=== PATIENT | male | born 1950 | race African-American/Black ===

== ENCOUNTER 2016-09-24 14:15 | Inpatient (IN) | payer OTHER ==
[~2016-09-24] VITALS: Ht 182.9 cm; Wt 124.8 kg
[2016-09-24 16:05] LABS: Basophils # (auto) 0 uL; Basophils % (auto) 0.5 % (0.0-2.0); Eosinophils # (auto) 0.1 uL; Eosinophils % (auto) 1.8 % (0.0-7.0); Hematocrit 43.5 % (41.0-53.0); Hemoglobin 14.3 g/dL (13.5-17.5); Lymphocytes # (auto) 1.5 uL; Lymphocytes % (auto) 25.2 % (10.0-50.0); Mean Corpuscular Hemoglobin 29.8 pg (28.0-32.0); Mean Corpuscular Hgb Conc. 32.9 g/dL (32.0-36.0); Mean Corpuscular Volume 90.6 fL (80.0-100.0); Mean Platelet Volume 9.6 fL (7.4-10.4); Monocytes # (auto) 0.4 uL; Monocytes % (auto) 6.6 % (0.0-12.0); Neutrophils % (auto) 65.9 % (37.0-80.0); Platelet Count (auto) 230 10^3/uL (140-450); Red Cell Distribution Width 14.4 % (11.6-16.0); White Blood Cell 6.1 10^3/uL (4.4-10.8)
[2016-09-24 16:26] LABS: Albumin 3.6 g/dL (3.4-5.0); BUN/Creatinine Ratio 19.2; Bilirubin, Total 0.5 mg/dL (0.2-1.0); Calcium 8.5 mg/dL (8.5-10.1); Magnesium 2.5 mg/dL (1.6-2.6); Total Protein 7.2 g/dL (6.4-8.2)
[2016-09-24] MEDS ORDERED: SODIUM CHLORIDE 0.9% 1,000 ML IV ONE (16:57)
[2016-09-24] MEDS ORDERED: MORPHINE SULF INJ 2 MG/ML SYRINGE 1ML IV ONE (17:00)
[2016-09-24 17:44] LABS: INR 0.99 (0.9-1.15); Partial Thromboplastin Time 24.5 sec (22.64-33.71); Prothrombin Time 10.8 sec (9.37-12.3)
[2016-09-24] MEDS ORDERED: NITROGLYCERIN 0.4 MG SL TAB SL PRN (18:45)
[2016-09-24] MEDS ORDERED: DEXTROSE (50%) 50ML SYRG IV PRN (18:45)
[2016-09-24] MEDS ORDERED: MORPHINE SULF INJ 2 MG/ML SYRINGE 1ML IV PRN ×2 (18:45)
[2016-09-24] MEDS ORDERED: HYDROcodone-ACET 5/325MG TAB PO PRN (18:45)
[2016-09-24] MEDS ORDERED: ACETAMINOPHEN 500 MG TAB PO PRN (18:45)
[2016-09-24] MEDS ORDERED: LORazepam 0.5 MG TAB PO PRN (18:45)
[2016-09-24] MEDS ORDERED: PROMETHAZINE HCL 25 MG/ML 1ML IV PRN (18:45)
[2016-09-24] MEDS ORDERED: LACTULOSE 20Gm/30ML SOLN PO PRN (18:45)
[2016-09-24] MEDS ORDERED: TEMAZEPAM 15 MG CAP PO PRN (18:45)
[2016-09-24] MEDS ORDERED: ASPirin 81 mg TAB PO ONE (19:00)
[2016-09-24] MEDS ORDERED: PANTOPRAZOLE 40 MG TAB PO ONE (19:00)
[2016-09-24] MEDS: SODIUM CHLORIDE 0.9% 1,000 ML IV SCH (19:34)
[2016-09-24] MEDS: ENOXAPARIN SOD 100 MG/1 ML SYRINGE SC SCH (21:56)
[2016-09-24] MEDS: METOPROLOL TARTRATE 25 MG TAB PO SCH (21:56)
[2016-09-24] MEDS: ATORVASTATIN 20 MG TAB PO SCH (21:56)
[2016-09-25 06:27] LABS: Basophils # (auto) 0 uL; Basophils % (auto) 0.6 % (0.0-2.0); Eosinophils # (auto) 0.1 uL; Eosinophils % (auto) 2.5 % (0.0-7.0); Hemoglobin 13.3 g/dL (13.5-17.5); Lymphocytes # (auto) 2.3 uL; Mean Corpuscular Hemoglobin 30.5 pg (28.0-32.0); Mean Corpuscular Hgb Conc. 34.1 g/dL (32.0-36.0); Mean Corpuscular Volume 89.4 fL (80.0-100.0); Mean Platelet Volume 9.7 fL (7.4-10.4); Monocytes # (auto) 0.3 uL; Monocytes % (auto) 5.9 % (0.0-12.0); Neutrophils # (auto) 2.9 uL; Platelet Count (auto) 201 10^3/uL (140-450); Red Cell Distribution Width 14.5 % (11.6-16.0); White Blood Cell 5.7 10^3/uL (4.4-10.8)
[2016-09-25 06:43] LABS: Albumin 3.3 g/dL (3.4-5.0); BUN/Creatinine Ratio 23.3; Bilirubin, Total 0.7 mg/dL (0.2-1.0); Calcium 7.8 mg/dL (8.5-10.1); Total Protein 6.3 g/dL (6.4-8.2)
[2016-09-25] MEDS: ACCU-CHEK COMFORT CURVE STRIP VI SCH ×4 (06:44→22:05)
[2016-09-25] MEDS: SODIUM CHLORIDE 0.9% 1,000 ML IV SCH ×2 (08:09→22:05)
[2016-09-25] MEDS ORDERED: ASPirin 81 mg TAB PO SCH (10:00)
[2016-09-25] MEDS: PANTOPRAZOLE 40 MG TAB PO SCH (10:16)
[2016-09-25] MEDS: ENOXAPARIN SOD 100 MG/1 ML SYRINGE SC SCH (10:16)
[2016-09-25] MEDS: METOPROLOL TARTRATE 25 MG TAB PO SCH ×4 (10:17→18:02)
[2016-09-25] MEDS ORDERED: IODIXANOL 320MG/ML 100ML BTL IV ONE (12:24)
[2016-09-25] MEDS ORDERED: LIDOCAINE 2%HCL (LOCAL ANESTH.) INJ 20ML MDV ONE (12:24)
[2016-09-25] MEDS ORDERED: DEXTROSE (50%) 50ML SYRG IV PRN (12:45)
[2016-09-25] MEDS ORDERED: MIDAZOLAM HCL 1MG/1ML-2 ML VIAL ONE (13:09)
[2016-09-25] MEDS ORDERED: fentaNYL CITRATE 100 MCG/2 ML VL ONE (13:09)
[2016-09-25] MEDS ORDERED: ANGIOMAX 250 MG VIAL IV ONE (13:37)
[2016-09-25] MEDS ORDERED: SODIUM CHL 0.9% 50 ML ONE (13:37)
[2016-09-25] MEDS ORDERED: PRASUGREL HCL 10 MG TAB ONE (14:17)
[2016-09-25] MEDS ORDERED: SODIUM CHLORIDE 0.9% 1,000 ML IV SCH (14:28)
[2016-09-25] MEDS ORDERED: HYDROmorphone HCL 2 MG/ML VL ONE (14:29)
[2016-09-25] MEDS ORDERED: NITROGLYCERIN 0.4 MG SL TAB SL PRN ×2 (14:30→15:45)
[2016-09-25] MEDS ORDERED: PRASUGREL HCL 10 MG TAB PO ONE (14:30)
[2016-09-25] MEDS ORDERED: ACETAMINOPHEN 500 MG TAB PO PRN (14:30)
[2016-09-25] MEDS ORDERED: HYDROcodone-ACET 5/325MG TAB PO PRN (14:30)
[2016-09-25] MEDS ORDERED: ASPirin-EC 81 mg tab PO ONE (14:30)
[2016-09-25] MEDS ORDERED: MORPHINE SULF INJ 2 MG/ML SYRINGE 1ML IV PRN ×2 (14:30→15:45)
[2016-09-25] MEDS ORDERED: METOPROLOL TARTRATE 25 MG TAB PO ONE (15:00)
[2016-09-25] MEDS ORDERED: ASPirin 81 mg TAB PO ONE (15:00)
[2016-09-25] MEDS: InsuLIN REG 1unit/0.01ml Soln (100units/ml) SC SCH ×2 (17:00→22:00)
[2016-09-25 17:10] VITALS: BP_SYST 140; BP_DIAS 83; BP_DIAS 86
[2016-09-25] MEDS ORDERED: HYDROmorphone HCL 2 MG/ML VL IV ONE (18:00)
[2016-09-25 22:00] VITALS: BP 123/79
[2016-09-25] MEDS: ATORVASTATIN 20 MG TAB PO SCH (22:05)
[2016-09-26 05:47] VITALS: BP 130/83
[2016-09-26] MEDS: InsuLIN REG 1unit/0.01ml Soln (100units/ml) SC SCH ×2 (06:30→11:58)
[2016-09-26] MEDS: ACCU-CHEK COMFORT CURVE STRIP VI SCH ×2 (06:30→11:56)
[2016-09-26 06:54] LABS: Basophils # (auto) 0 uL; Basophils % (auto) 0.6 % (0.0-2.0); Eosinophils # (auto) 0.1 uL; Eosinophils % (auto) 1.4 % (0.0-7.0); Hematocrit 39.7 % (41.0-53.0); Hemoglobin 13.1 g/dL (13.5-17.5); Lymphocytes # (auto) 1.8 uL; Lymphocytes % (auto) 29.4 % (10.0-50.0); Mean Corpuscular Hemoglobin 29.7 pg (28.0-32.0); Mean Corpuscular Hgb Conc. 33.1 g/dL (32.0-36.0); Mean Corpuscular Volume 89.6 fL (80.0-100.0); Mean Platelet Volume 9.9 fL (7.4-10.4); Monocytes # (auto) 0.5 uL; Monocytes % (auto) 7.5 % (0.0-12.0); Neutrophils # (auto) 3.8 uL; Neutrophils % (auto) 61.1 % (37.0-80.0); Platelet Count (auto) 189 10^3/uL (140-450); Red Cell Distribution Width 14.4 % (11.6-16.0); White Blood Cell 6.3 10^3/uL (4.4-10.8)
[2016-09-26 07:21] LABS: Calcium 8.2 mg/dL (8.5-10.1); Magnesium 2.2 mg/dL (1.6-2.6); Potassium 4.6 mmol/L (3.5-5.1)
[2016-09-26 08:55] VITALS: BP 164/90
[2016-09-26] MEDS: PANTOPRAZOLE 40 MG TAB PO SCH (10:00)
[2016-09-26] MEDS ORDERED: ASPirin-EC 81 mg tab PO SCH (10:00)
[2016-09-26] MEDS ORDERED: CLOPIDOGREL BISULFATE 75 MG TAB PO ONE (10:00)
[2016-09-26] MEDS: SODIUM CHLORIDE 0.9% 1,000 ML IV SCH (10:38)
[2016-09-26] MEDS ORDERED: METOPROLOL TARTRATE 25 MG TAB PO SCH (11:00)
[2016-09-26 13:00] VITALS: BP 153/89
[2016-09-26 15:30] VITALS: BP 148/86
[2016-09-26 16:49] VITALS: BP 140/93
== END 2016-09-26 16:55 | disposition home or self-care (01) | DRG 246 ==
LOC: EDBD 14:15 → ER 14:28 → TELE 14:29 → TELE-WESTW 09-25 17:05
PROVIDERS: ADMIT Internal Medicine; ATTEND Internal Medicine
PROC: 4A023N7 Measurement of Cardiac Sampling and Pressure, Left Heart, Percutaneous Approach (ICD-10-PCS; principal; 2016-09-25)
PROC: B2111ZZ Fluoroscopy of Multiple Coronary Arteries using Low Osmolar Contrast (ICD-10-PCS; 2016-09-25)
PROC: 027034Z Dilation of Coronary Artery, One Artery with Drug-eluting Intraluminal Device, Percutaneous Approach (ICD-10-PCS; 2016-09-25)
PROC: 02703ZZ Dilation of Coronary Artery, One Artery, Percutaneous Approach (ICD-10-PCS; 2016-09-25)
DX: T82.855A Stenosis of coronary artery stent, initial encounter (principal); I21.4 Non-ST elevation (NSTEMI) myocardial infarction; I25.110 Atherosclerotic heart disease of native coronary artery with unstable angina pectoris; E11.9 Type 2 diabetes mellitus without complications; E78.5 Hyperlipidemia, unspecified; I10 Essential (primary) hypertension; G47.30 Sleep apnea, unspecified; Y83.1 Surgical operation with implant of artificial internal device as the cause of abnormal reaction of the patient, or of later complication, without mention of misadventure at the time of the procedure; I25.2 Old myocardial infarction; Y92.89 Other specified places as the place of occurrence of the external cause
CPT/HCPCS: 36415; 71020; 80048; 80053; 80061; 82550; 82962; 83036; 83735; 84443; 84484; 85025; 85379; 85610; 85652; 85730; 86141; 93005; 93306; 94761; 96361; 96374; 99152; C1874; C1887; J1815; J2250; Q9967

== ENCOUNTER 2017-04-30 02:02 | Emergency (ER) | payer OTHER ==
[~2017-04-30] VITALS: Ht 182.9 cm; Wt 115.7 kg
[2017-04-30 03:54] LABS: Basophils # (auto) 0 uL; Basophils % (auto) 0.5 % (0.0-2.0); Eosinophils # (auto) 0.2 uL; Eosinophils % (auto) 2.8 % (0.0-7.0); Hematocrit 40.1 % (41.0-53.0); Hemoglobin 13.5 g/dL (13.5-17.5); Lymphocytes # (auto) 1.8 uL; Lymphocytes % (auto) 28.9 % (10.0-50.0); Mean Corpuscular Hemoglobin 29.8 pg (28.0-32.0); Mean Corpuscular Hgb Conc. 33.6 g/dL (32.0-36.0); Mean Corpuscular Volume 88.6 fL (80.0-100.0); Monocytes # (auto) 0.5 uL; Monocytes % (auto) 8.3 % (0.0-12.0); Neutrophils # (auto) 3.7 uL; Neutrophils % (auto) 59.5 % (37.0-80.0); Platelet Count (auto) 191 10^3/uL (140-450); Red Blood Cells 4.52 10^6/uL (4.5-5.90); Red Cell Distribution Width 14.5 % (11.8-14.3); White Blood Cell 6.2 10^3/uL (4.4-10.8)
[2017-04-30 04:09] LABS: INR 0.98 (0.9-1.15); Partial Thromboplastin Time 26.2 sec (22.64-33.71); Prothrombin Time 10.7 sec (9.37-12.3)
[2017-04-30 04:11] LABS: Albumin 3.9 g/dL (3.4-5.0); Bilirubin, Total 0.4 mg/dL (0.2-1.0); Calcium 8.6 mg/dL (8.5-10.1); Magnesium 2.2 mg/dL (1.6-2.6); Potassium 3.6 mmol/L (3.5-5.1); Total Protein 7.4 g/dL (6.4-8.2)
[2017-04-30 07:30] VITALS: BP 156/108
[2017-04-30] MEDS ORDERED: NITROGLYCERIN 0.4 MG SL TAB SL ONE (07:30)
[2017-04-30] MEDS ORDERED: ASPirin 325 MG TAB PO ONE (07:30)
[2017-04-30] MEDS ORDERED: LORazepam 0.5 MG TAB PO ONE (07:30)
== END 2017-04-30 09:32 | disposition home or self-care (01) ==
LOC: ER 02:02
DX: R07.89 Other chest pain (principal); I25.10 Atherosclerotic heart disease of native coronary artery without angina pectoris; E11.9 Type 2 diabetes mellitus without complications; E78.5 Hyperlipidemia, unspecified; I10 Essential (primary) hypertension; I25.2 Old myocardial infarction
CPT/HCPCS: 36415; 71010; 80053; 82962; 83735; 83880; 84484; 85025; 85610; 85730; 93005

== ENCOUNTER 2021-06-07 17:04 | Emergency (ER) | payer OTHER ==
[~2021-06-07] VITALS: Ht 182.9 cm; Wt 101.6 kg
[2021-06-07 17:15] VITALS: BP 142/69
[2021-06-07 18:24] LABS: Basophils # (auto) 0 10 ^3/uL (0-0.2); Basophils % (auto) 0.8 % (0.0-2.0); Eosinophils # (auto) 0.2 10 ^3/uL (0-0.8); Eosinophils % (auto) 3.8 % (0.0-7.0); Hematocrit 42.2 % (41.0-53.0); Hemoglobin 14.2 g/dL (13.5-17.5); Lymphocytes # (auto) 1.5 10 ^3/uL (0.4-5.4); Lymphocytes % (auto) 37.4 % (10.0-50.0); Mean Corpuscular Hemoglobin 30.2 pg (28.0-32.0); Mean Corpuscular Hgb Conc. 33.6 g/dL (32.0-36.0); Mean Corpuscular Volume 89.9 fL (80.0-100.0); Monocytes # (auto) 0.3 10 ^3/uL (0-1.3); Neutrophils # (auto) 2.1 10 ^3/uL (1.6-8.6); Nucleated Red Blood Cells % 0.3 %; Red Blood Cells 4.69 10^6/uL (4.5-5.90); White Blood Cell 4.1 10^3/uL (4.4-10.8)
[2021-06-07] MEDS ORDERED: OXYMETAZOLINE HCL 0.05 % NASAL SPRAY 15ML EACHNOSTRI ONE (18:30)
[2021-06-07 18:39] LABS: INR 1.05 (0.9-1.15); Partial Thromboplastin Time 25.6 sec (23.6-33.0)
[2021-06-07 18:42] LABS: Albumin 3.8 g/dL (3.4-5.0); Potassium 4.5 mmol/L (3.5-5.1)
[2021-06-07 18:48] LABS: BUN/Creatinine Ratio 27.5; Bilirubin, Total 0.5 mg/dL (0.2-1.0); Total Protein 6.8 g/dL (6.4-8.2)
[2021-06-07] MEDS ORDERED: SALI0.6562 (21:19)
[2021-06-07] MEDS ORDERED: OXYM-20 (21:19)
== END 2021-06-07 21:01 | disposition home or self-care (01) ==
LOC: ER 17:11
DX: R04.0 Epistaxis (principal); I10 Essential (primary) hypertension; I25.2 Old myocardial infarction; I25.10 Atherosclerotic heart disease of native coronary artery without angina pectoris; E11.9 Type 2 diabetes mellitus without complications; E78.5 Hyperlipidemia, unspecified
CPT/HCPCS: 36415; 80053; 85025; 85610; 85730

== ENCOUNTER 2021-08-31 07:40 | Emergency (ER) | payer OTHER ==
[~2021-08-31] VITALS: Ht 182.9 cm; Wt 102.1 kg
[~2021-08-31 07:40] MED LIST: OXYM-20; SALI0.6562
[2021-08-31] MEDS ORDERED: OXYMETAZOLINE HCL 0.05 % NASAL SPRAY 15ML EACHNOSTRI ONE (08:30)
[2021-08-31 10:00] VITALS: BP 137/85
[2021-08-31] MEDS ORDERED: OXYM-15 (10:45)
== END 2021-08-31 11:03 | disposition home or self-care (01) ==
LOC: ER 07:40
DX: R04.0 Epistaxis (principal); I10 Essential (primary) hypertension; I25.10 Atherosclerotic heart disease of native coronary artery without angina pectoris; I25.2 Old myocardial infarction; E11.9 Type 2 diabetes mellitus without complications; E78.5 Hyperlipidemia, unspecified; Z79.899 Other long term (current) drug therapy

== ENCOUNTER 2021-09-18 01:57 | Emergency (ER) | payer OTHER ==
[~2021-09-18] VITALS: Ht 185.4 cm; Wt 102.1 kg
[~2021-09-18 01:57] MED LIST changes: +OXYM-15
[2021-09-18 01:58] VITALS: BP 143/79
== END 2021-09-18 04:00 | disposition left against medical advice (07) ==
LOC: ER 01:57
DX: R04.0 Epistaxis (principal); Z53.21 Procedure and treatment not carried out due to patient leaving prior to being seen by health care provider

== ENCOUNTER 2023-10-17 22:49 | Emergency (ER) | payer OTHER ==
[~2023-10-17] VITALS: Ht 182.9 cm; Wt 102.3 kg
[2023-10-17 23:28] LABS: Basophils # (auto) 0 10 ^3/uL (0-0.2); Basophils % (auto) 0.6 % (0.0-2.0); Eosinophils # (auto) 0.2 10 ^3/uL (0-0.8); Eosinophils % (auto) 4.4 % (0.0-7.0); Hematocrit 42.2 % (41.0-53.0); Lymphocytes # (auto) 1.5 10 ^3/uL (0.4-5.4); Lymphocytes % (auto) 32.8 % (10.0-50.0); Mean Corpuscular Hgb Conc. 33.2 g/dL (32.0-36.0); Mean Corpuscular Volume 90.4 fL (80.0-100.0); Monocytes # (auto) 0.4 10 ^3/uL (0-1.3); Monocytes % (auto) 9.4 % (0.0-12.0); Neutrophils # (auto) 2.4 10 ^3/uL (1.6-8.6); Neutrophils % (auto) 52.8 % (37.0-80.0); Nucleated Red Blood Cells % 0.1 %; Red Blood Cells 4.66 10^6/uL (4.5-5.90); Red Cell Distribution Width 14.7 % (11.8-14.3); White Blood Cell 4.5 10^3/uL (4.4-10.8)
[2023-10-17 23:40] LABS: INR 1.08 (0.9-1.15); Partial Thromboplastin Time 25.3 SEC (24.5-34.5); Prothrombin Time 11.4 sec (9.3-11.8)
[2023-10-17 23:42] LABS: Albumin 4.4 g/dL (3.2-4.8); Alkaline Phosphatase 128 U/L (46-116); Anion Gap 8 (5-15); Aspartate Aminotransferase 10 U/L (13-40); BUN/Creatinine Ratio 13.6 (10.0-20.0); Blood Urea Nitrogen 14 mg/dL (9-23); Calcium 9.8 mg/dL (8.7-10.4); Carbon Dioxide 31 mmol/L (20-30); Chloride 107 mmol/L (98-107); Glucose 125 mg/dL (74-106); Potassium 4.3 mmol/L (3.5-5.1); Sodium 146 mmol/L (136-145)
[2023-10-17 23:43] LABS: Bilirubin, Total 0.5 mg/dL (0.2-1.0); Total Protein 6.8 g/dL (5.7-8.2)
[2023-10-17 23:58] LABS: Alanine Aminotransferase 9 U/L (7-40)
[2023-10-18] MEDS: NITROGLYCERIN 2% OINT 1GM PKG TD ONE (00:44)
[2023-10-18 05:30] VITALS: PULSE 66; RESP 18; O2SAT 96
[2023-10-18] MEDS: ASPirin 325 MG TAB PO ONE (06:02)
[2023-10-18 07:40] VITALS: PULSE 48; PULSE 73; RESP 17; O2SAT 99
[2023-10-18 09:10] VITALS: BP 109/66; PULSE 56; RESP 22; TEMP 97.7; O2SAT 99
== END 2023-10-18 09:53 | disposition short-term general hospital (02) ==
LOC: ER 22:49
DX: R07.89 Other chest pain (principal); I10 Essential (primary) hypertension; I25.2 Old myocardial infarction; E11.9 Type 2 diabetes mellitus without complications; E78.5 Hyperlipidemia, unspecified; I25.10 Atherosclerotic heart disease of native coronary artery without angina pectoris; Z98.890 Other specified postprocedural states; Z79.899 Other long term (current) drug therapy
CPT/HCPCS: 36415; 71045; 80053; 83880; 84484; 85025; 85610; 85730; 93005

== ENCOUNTER 2023-11-23 10:01 | Emergency (ER) | payer OTHER, BC ==
[~2023-11-23] VITALS: Ht 182.9 cm; Wt 99.0 kg
[~2023-11-23 10:01] MED LIST changes: +CEPH250C PO
[2023-11-23 11:07] VITALS: BP 130/87; PULSE 70; RESP 18; TEMP 97.8; O2SAT 100
== END 2023-11-23 11:13 | disposition home or self-care (01) ==
LOC: ER 10:01
DX: R04.0 Epistaxis (principal); Z48.00 Encounter for change or removal of nonsurgical wound dressing; I25.10 Atherosclerotic heart disease of native coronary artery without angina pectoris; E11.9 Type 2 diabetes mellitus without complications; E78.5 Hyperlipidemia, unspecified; I10 Essential (primary) hypertension; I25.2 Old myocardial infarction; Z98.61 Coronary angioplasty status